=== PATIENT | female | born 1985 | race African-American/Black ===

== ENCOUNTER 2024-05-26 09:51 | Emergency (ER) | payer OTHER, SELFPAY ==
--- NOTE | ~2024-05-26 | US_ITS ---
EXAMINATION: US pelvic complete w TV DATE: 05/26/2024 13:37 INDICATION: Pelvic pain. Fever. TECHNIQUE: Multiple transabdominal and transvaginal sonographic images of the pelvis were obtained. COMPARISON: None. FINDINGS: TRANSABDOMINAL ULTRASOUND: The uterus measures 10.3 x 4.6 x 4.7 cm. There is no free fluid in the pelvis. TRANSVAGINAL ULTRASOUND: The endometrial complex measures 9 mm in thickness. The right ovary measures 3.6 x 1.5 x 2.1 cm. The left ovary measures 3.7 x 1.8 x 1.5 cm. There is normal vascular flow in the ovaries. IMPRESSION: 1. Normal pelvis. Reviewed, dictated and finalized at location A. CELL TECHNICIAN IMPRESSION: 1. Normal pelvis.
[2024-05-26 09:54] VITALS: BP 106/76; PULSE 105; RESP 18; TEMP 36.9; O2SAT 100
--- NOTE | 2024-05-26 10:58 | ED.FEMALEGU ---
HPI - Female Genitourinary General Chief complaint: LOBBY CONCIERGE Stated complaint: concerned for PID, pelvic pain, discharge, fever Time Seen by Provider: 05/26/24 10:51 Source: patient Mode of arrival: ambulatory Limitations: no limitations History of Present Illness HPI Narrative: patient is a 12 female who presents with complaint of low pelvic pain and vaginal discharge as well as a fever of 102 ? yesterday. last menstrual period was approximately 1 month ago. She is sexually active with men, 1 partner in last month. She is not on control and does not use condoms. She states that the discharge from her vagina is yellow and like urine, requiring the insertion of a tampon. she has had decreased appetite. she took Tylenol at 7:00 a.m.. No prior history of PID. She notes that she had an abnormal Pap smear approximately 20 years ago and had a procedure performed as a result but denies any LEEP procedure. She has not had any cough. Her OB Gyne is through very [facility]. She denies any vaginal bleeding or history of sexually transmitted infections. no dysuria, hematuria, urgency or frequency. In general she states that she just feels like she has no strength to even use the bathroom. Related Data Allergies Allergy/AdvReac Type Severity Reaction Status Date / Time No Known Allergies Allergy Verified 05/26/24 09:57 [facility] Past Medical History Medical History History of abnormal cervical Pap smear approx 2003 History of ectopic approx 2012 Social History Social History (Updated 05/26/24 @ 22:02 by Kia Rodriguez MD) Sexual Orientation (if Verbalized by the Patient): Straight or Heterosexual Exam Narrative: GENERAL: Well-appearing, well-nourished, and in no acute distress. HEAD: Normocephalic, atraumatic. EYES: Non injected, non icteric ENT: Nares clear, no rhinorrhea or epistaxis. NECK: Supple. CHEST: Speaking in full sentences. No respiratory distress. HEART: Regular rate and rhythm. . ABDOMEN: Soft, nondistended. EXTREMITIES: Normal range of motion. No lower extremity edema. : Mild suprapubic/pelvic tenderness to palpation. PElvic exam performed with RN present as instructional resource teacher/program services assistant. Normal external genitalia without lesions. Normal vaginal mucosa. There is some white/ yellowish mucopurulent discharge. on bimanual exam, patient does have some cervical motion tenderness. SKIN: Warm, dry, no rash. NEURO: No focal deficits. Alert and oriented x3. PSYCH: Normal mood and affect. Course Vital Signs Vital signs: Vital Signs Temperature 98.4 F 05/26/24 09:54 Pulse Rate 105 H 05/26/24 09:54 Respiratory Rate 18 05/26/24 09:54 Blood Pressure 106/76 05/26/24 09:54 Pulse Oximetry 100 05/26/24 09:54 Oxygen Delivery Room Air 05/26/24 09:54 Temperature 98.0 F 05/26/24 15:39 Pulse Rate 68 05/26/24 15:39 Respiratory Rate 14 05/26/24 15:39 Blood Pressure 108/70 05/26/24 15:39 Pulse Oximetry 99 05/26/24 15:39 Oxygen Delivery Room Air 05/26/24 11:18 MDM - Female Genitourinary MDM Narrative Medical decision making narrative: patient presents with low pelvic pain vaginal discharge, and a fever. in the emergency department she was afebrile with vital signs notable for mild tachycardia. on exam she does have some mucopurulent discharge and mild cervical motion tenderness. Therefore, although she tested negative for gonorrhea, chlamydia, and Trichomonas, will treat as pelvic inflammatory disease/ disorder and patient is given ceftriaxone, doxycycline, and Flagyl. Received 1st dose of the in the emergency department with course of prescriptions for doxycycline and Flagyl to follow. Advised follow-up with Ob Gyne in 72 hours and to obtain from sex while being treated. Differential Diagnosis Differential diagnosis: Likely urinary tract infection, bacterial vaginosis, trichomoniasis, cervicitis, ovarian cyst, vaginitis, cystitis, dysmenorrhea and other ( sexually transmitted infection, PID, TOA; also considered other etiologies for fever such as acute viral syndrome) Lab Data Attestation: I reviewed the patient's lab results. Lab results narrative: Leukopenia, thrombocytopenia 05/26/24 13:35 05/26/24 13:35 Labs: Lab Results 05/26/24 05/26/24 05/26/24 Range/Units 11:06 11:07 11:18 WBC (4.5-10.0) K/mm3 RBC (4.2-5.4) M/mm3 Hgb (12.0-15.0) g/dL Hct (37.0-47.0) % MCV (80-100) fl MCH (26-34) pg MCHC (32-36) g/dl RDW (11.5-14.5) % Plt Count (150-375) k/mm3 MPV (7.4-10.4) fl Immature Gran % (Auto) (0-0.5) % Neut % (Auto) (45.5-73.1) % Lymph % (Auto) (18.3-44.2) % [place] % (Auto) (2.6-8.5) % Eos % (Auto) (0-4.4) % Baso % (Auto) (0.2-1.2) % Lymph # (Auto) (0.9-3.2) K/mm3 [place] # (Auto) (0.1-0.6) K/mm3 Eos # (Auto) (0-0.3) K/mm3 Baso # (Auto) (0.0-0.1) K/mm3 Abs Immat Gran (auto) (0.00-0.031) K/mm3 Absolute Neuts (auto) (1.3-6.7) K/mm3 Absolute Nucleated RBC (0.0-0.012) K/mm3 Nucleated RBC % (0.0-0.2) % ESR (0-20) mm/hr Sodium (137-145) mmol/L Potassium (3.4-5.0) mmol/L Chloride (98-107) mmol/L Carbon Dioxide (22-30) mmol/L Anion Gap (4-12) mmol/L BUN (7-17) mg/dL Creatinine (0.7-1.0) mg/dL Estim Creat Clear Calc ml/min Estimated GFR (59 - ) Glucose (65-110) mg/dL Calcium (8.4-10.2) mg/dL Total Bilirubin (0.2-1.3) mg/dL AST (14-36) U/L ALT (6-35) U/L Alkaline Phosphatase (38-126) U/L C-Reactive Protein (<1.0) mg/dL Total Protein (6.3-8.2) g/dL Albumin (3.5-5.1) g/dL Urine Color Dark yellow (Yellow) Urine Appearance Clear (Clear) Urine pH 5.5 (5.0-9.0) Ur Specific [place] 1.028 (1.001-1.035) Urine Protein 1+ H (Negative) mg/dL Urine Glucose (UA) Negative (Negative) mg/dL Urine Ketones 2+ H (Negative) mg/dL Ur Blood (Man) Negative (Negative) Urine Nitrate Negative (Negative) Urine Bilirubin Negative (Negative) Urine Urobilinogen 1.0 (<2.0) mg/dL Add Ur Microanalysis Reviewed Leukocyte Esterase Rfl Negative (Negative) GAMAL/UL Urine RBC 0-2 (0-2) /hpf Urine WBC 0-5 (0-3) /hpf Ur Squamous Epith Cells Occasional (Few) /hpf Urine Bacteria None seen /hpf Urine Casts 0-2 POC Urine HCG, Qual Negative (Negative) C. trachomatis (PCR) Not detected (NOT DETECTE) N. gonorrhoeae (PCR) Not detected (NOT DETECTE) T. vaginalis (PCR) Not detected (NOT DETECTE) Bact Vaginosis Panel 05/26/24 05/26/24 Range/Units 12:45 13:35 WBC 4.0 L (4.5-10.0) K/mm3 RBC 4.38 (4.2-5.4) M/mm3 Hgb 14.1 (12.0-15.0) g/dL Hct 40.8 (37.0-47.0) % MCV 93.2 (80-100) fl MCH 32.2 (26-34) pg MCHC 34.6 (32-36) g/dl RDW 12.2 (11.5-14.5) % Plt Count 147 L (150-375) k/mm3 MPV 10.9 H (7.4-10.4) fl Immature Gran % (Auto) 0.3 (0-0.5) % Neut % (Auto) 67.5 (45.5-73.1) % Lymph % (Auto) 23.3 (18.3-44.2) % [place] % (Auto) 8.6 H (2.6-8.5) % Eos % (Auto) 0.0 (0-4.4) % Baso % (Auto) 0.3 (0.2-1.2) % Lymph # (Auto) 0.92 (0.9-3.2) K/mm3 [place] # (Auto) 0.3 (0.1-0.6) K/mm3 Eos # (Auto) 0.0 (0-0.3) K/mm3 Baso # (Auto) 0.0 (0.0-0.1) K/mm3 Abs Immat Gran (auto) 0.01 (0.00-0.031) K/mm3 Absolute Neuts (auto) 2.7 (1.3-6.7) K/mm3 Absolute Nucleated RBC 0.000 (0.0-0.012) K/mm3 Nucleated RBC % 0.0 (0.0-0.2) % ESR 23 H (0-20) mm/hr Sodium 132 L (137-145) mmol/L Potassium 3.9 (3.4-5.0) mmol/L Chloride 98 (98-107) mmol/L Carbon Dioxide 26 (22-30) mmol/L Anion Gap 8 (4-12) mmol/L BUN 11 (7-17) mg/dL Creatinine 0.70 (0.7-1.0) mg/dL Estim Creat Clear Calc 82 ml/min Estimated GFR > 60 (59 - ) Glucose 92 (65-110) mg/dL Calcium 8.4 (8.4-10.2) mg/dL Total Bilirubin 0.9 (0.2-1.3) mg/dL AST 28 (14-36) U/L ALT 12 (6-35) U/L Alkaline Phosphatase 61 (38-126) U/L C-Reactive Protein 4.6 H (<1.0) mg/dL Total Protein 8.0 (6.3-8.2) g/dL Albumin 4.1 (3.5-5.1) g/dL Urine Color (Yellow) Urine Appearance (Clear) Urine pH (5.0-9.0) Ur Specific [place] (1.001-1.035) Urine Protein (Negative) mg/dL Urine Glucose (UA) (Negative) mg/dL Urine Ketones (Negative) mg/dL Ur Blood (Man) (Negative) Urine Nitrate (Negative) Urine Bilirubin (Negative) Urine Urobilinogen (<2.0) mg/dL Add Ur Microanalysis Leukocyte Esterase Rfl (Negative) GAMAL/UL Urine RBC (0-2) /hpf Urine WBC (0-3) /hpf Ur Squamous Epith Cells (Few) /hpf Urine Bacteria /hpf Urine Casts POC Urine HCG, Qual (Negative) C. trachomatis (PCR) (NOT DETECTE) N. gonorrhoeae (PCR) (NOT DETECTE) T. vaginalis (PCR) (NOT DETECTE) Bact Vaginosis Panel Pending Imaging Data Radiologist's impression: Impressions Pelvic/Transvag US 05/26/24 13:47 IMPRESSION: 1. Normal pelvis. Discharge Plan Discharge Clinical Impression: Vaginal discharge, Leukopenia, Thrombocytopenia, CRP elevated, ESR raised, Hyponatremia Patient Disposition: Home, Self-Care Condition: Stable Instructions: Antibiotic Form, Pelvic Inflammatory Disease (DC), Hyponatremia (ED), Thrombocytopenia (ED), Vaginal Discharge (ED) Additional Instructions: You tested negative for gonorrhea, chlamydia, and Trichomonas however your symptoms are concerning for PID and for this reason will treat as such. No sexual activity or adhere strictly to condom use for 2 weeks or until symptoms have abated. Take the entire course of antibiotics as prescribed. You received the 1st dose in the emergency department. Do not drink alcohol taking metronidazole/ Flagyl as it can cause GI distress /nausea/ vomiting. Follow up with your ObGyn (any of the 3 listed below through [facility]) in 72 hours. Return to the emergency department with any new or worsening symptoms. Prescriptions: New doxycycline hyclate 100 mg capsule 100 mg PO BID 14 Days Qty: 27 0RF Rx Instructions: received first dose in ED 05/26; start 1115 AM metronidazole 500 mg tablet 500 mg PO Q12H 14 Days Qty: 27 0RF Rx Instructions: start taking 05/27; first dose in ED 05/26 Follow-up/Referrals: Shaun Nash MD [Physician] - Antonio Amaya MD [Physician] - PHYSICIAN NOT ON STAFF,NONSTAFF [Non-Staff] - Sussy Parnell CNM [Certified Nurse [employer]] - Stand Alone Forms: Work/School Release IP Time of Disposition: 15:18
[2024-05-26 11:18] VITALS: BP 109/77; PULSE 88; RESP 15; TEMP 36.5; O2SAT 97
[2024-05-26 11:19] LABS: BEDSIDEPREGUCG Negative (Negative)
[2024-05-26 11:39] LABS: Add Urine Microscopic? YES; Appearance Urine Clear (Clear); Bacteria Urine None Seen /hpf; Bilirubin Urine Negative (Negative); Blood Urine Negative (Negative); Color Urine Dark Yellow (Yellow); Glucose Urine UA Negative (Negative); Ketones Urine 2+ mg/dL (Negative); Leukocyte Esterase Ur Negative LEU/UL (Negative); Need Manual Microscopic Reviewed; Nitrate Urine Negative (Negative); Non Pathogenic Casts 0-2; Protein Urine 1+ mg/dL (Negative); Specific Grav Ur 1.028 (1.001-1.035); Squamous Epithelial Cell Urine Occasional /hpf (Few); WBC Urine 0-5 /hpf (0-3); pH Urine 5.5 (5.0-9.0)
[2024-05-26 11:43] LABS: RBC Urine 0-2 /hpf (0-2)
[2024-05-26 12:28] LABS: Trichomonas Vag PCR NOT DETECTED (NOT DETECTE)
[2024-05-26] MEDS: HYDROcodone/acetaminophen (*CRX) 5-325 MG TABLET 1 TAB PO (12:32)
[2024-05-26 12:53] LABS: Chlamydia trachomatis NOT DETECTED (NOT DETECTE); Neisseria gonorrhoeae PCR NOT DETECTED (NOT DETECTE)
[2024-05-26 13:39] VITALS: BP 112/73; PULSE 73; RESP 16; O2SAT 99
[2024-05-26 13:40] LABS: Basophils Percent Auto 0.3 % (0.2-1.2); Hematocrit 40.8 % (37.0-47.0); Hemoglobin 14.1 g/dL (12.0-15.0); Immature Granulocyte Absolute 0.01 K/mm3 (0.00-0.031); Immature Granulocyte Percent A 0.3 % (0-0.5); Lymphocytes Absolute Auto 0.92 K/mm3 (0.9-3.2); Lymphocytes Percent Auto 23.3 % (18.3-44.2); Mean Corpuscular HGB Conc 34.6 g/dl (32-36); Mean Corpuscular Hemoglobin 32.2 pg (26-34); Mean Corpuscular Volume 93.2 fl (80-100); Mean Platelet Volume 10.9 fl (7.4-10.4); Monocytes Absolute Auto 0.3 K/mm3 (0.1-0.6); Monocytes Percent Auto 8.6 % (2.6-8.5); Neutrophils Absolute Auto 2.7 K/mm3 (1.3-6.7); Neutrophils Percent Auto 67.5 % (45.5-73.1); Platelet Count Result 147 k/mm3 (150-375); Red Blood Count 4.38 M/mm3 (4.2-5.4); Red Cell Distribution Width 12.2 % (11.5-14.5)
[2024-05-26 13:56] LABS: Alanine Aminotransferase 12 U/L (6-35); Albumin Level 4.1 g/dL (3.5-5.1); Alkaline Phosphatase 61 U/L (38-126); Anion Gap 8 mmol/L (4-12); Aspartate Amino Transferase 28 U/L (14-36); Bilirubin,Total 0.9 mg/dL (0.2-1.3); Blood Urea Nitrogen 11 mg/dL (7-17); CRP 4.6 mg/dL (<1.0); Calcium 8.4 mg/dL (8.4-10.2); Carbon Dioxide 26 mmol/L (22-30); Chloride 98 mmol/L (98-107); Estimated CRCL calculation 82 ml/min; Estimated Glomerular Filt Rate > 60; Glucose 92 mg/dL (65-110); Potassium 3.9 mmol/L (3.4-5.0); Sodium 132 mmol/L (137-145)
[2024-05-26 15:04] LABS: Erythrocyte Sedimentation Rate 23 mm/hr (0-20)
[2024-05-26] MEDS: metroNIDAZOLE 500 MG TABLET PO (15:30)
[2024-05-26] MEDS: cefTRIAXone 1 GM VIAL 0.5 GM IM (15:30)
[2024-05-26] MEDS: DOXYCYCLINE HYCLATE 100 MG TABLET PO (15:30)
[2024-05-26 15:39] VITALS: BP 108/70; PULSE 68; RESP 14; TEMP 36.7; O2SAT 99
== END 2024-05-26 15:41 | disposition home or self-care (01) ==
PROVIDERS: Emergency Provider Student in an Organized Health Care Education/Training Program
DX: N89.8 Other specified noninflammatory disorders of vagina (principal); D72.819 Decreased white blood cell count, unspecified; D69.6 Thrombocytopenia, unspecified; E87.1 Hypo-osmolality and hyponatremia; R79.82 Elevated C-reactive protein (CRP); R70.0 Elevated erythrocyte sedimentation rate
CPT/HCPCS: 36415; 76830; 76856; 80053; 81001; 81025; 81513; 85025; 85652; 86140; 87070; 87205; 87491; 87591; 87661; 96372; 99284; A9270; J0696